=== PATIENT | female | born 1945 | race Caucasian/White ===

== ENCOUNTER 2017-01-12 16:25 | Emergency (ER) | payer MEDICARE ==
--- NOTE | 2017-01-12 17:09 | ED Physician Documentation ---
Upper Respiratory Symptoms - HISTORIAN Historian: patient - HPI Stated Complaint: cough, congestion Chief Complaint: Upper Respiratory Symptoms Additional Information: thinks she got sick sitting in car with AC on full blast, started coughing, now sides hurt from coughing so much. runny nose, taking benadryl and cold medicine. Onset: days ago Duration: constant Context: denies: recent foreign travel Severity: mild Associated Symptoms: runny nose, sore throat. denies: fever, chills, bloody cough, productive cough, shortness of breath, hurts to breathe Worsened by Deep Breath: No Further Comments: no - ROS CONST/EYES: denies: weakness CVS/RESP: other LYMPH: denies: leg swelling, rash GI/: none NEURO/PSYCH: denies: fainting, dizziness MS/SKIN: denies: joint pain, muscle aches - PAST HX Lung Disease: none PE Risk Factors: hypertension Allergies/Adverse Reactions: Allergies Allergy/AdvReac Type Severity Reaction Status Date / Time No Known Allergies Allergy Verified 01/12/17 16:42 Home Medications: Ambulatory Orders Medication Instructions Recorded Amantadine HCl [Amantadine] 100 mg PO QDAY 05/28/12 Armodafinil [Nuvigil] 50 mg PO QDAY 05/28/12 Solifenacin Succinate [Vesicare] 10 mg PO QDAY 05/28/12 Escitalopram Oxalate [Lexapro] 20 mg PO QDAY 06/19/12 Simvastatin [Simvastatin] 40 mg PO HS 06/19/12 - SOCIAL HX Smoking History: cigarettes, greater than 1 pack/day Alcohol Use: none Drug Use: none - FAMILY HX Family History: none - VITAL SIGNS Vital Signs: Vital Signs Temp Pulse Resp BP Pulse Ox 98.3 F 85 16 136/59 97 01/12/17 16:25 01/12/17 16:25 01/12/17 16:25 01/12/17 16:25 01/12/17 16:25 - REVIEWED ASSESSMENTS Nursing Assessment Reviewed: Yes Vitals Reviewed: Yes Upper Respiratory Symptoms - EXAM General Appearance: no acute distress, alert EENT: eyes nml inspection, nml ENT inspection, lids & conjunct. nml, pharynx nml , airway nml Neck: normal inspection, thyroid normal, supple. No: lymphadenopathy, carotid bruit Respiratory: no resp. distress, breath sounds nml, no pain on inspiration, speaks full sentences Abdomen: non-tender CVS: reg rate & rhythm, heart sounds normal Skin: color nml, no rash, warm,dry Extremities: non-tender, normal range of motion, no evidence of injury Neuro/Psych: oriented x3 Discharge Clincal Impression: Costochondritis, acute Allergic rhinitis Qualifiers: Chronicity: acute Allergic rhinitis trigger: other Allergic rhinitis seasonality: unspecified seasonality Qualified Code(s): J30.89 - Other allergic rhinitis Referrals: Christopher Mcginnis MD [Primary Care Provider] - 2 Days Condition: Good Disposition: 01 HOME, SELF-CARE Decision to Admit: NO Date of Decison to Admit: 01/12/17 Decision Time: 17:13
[2017-01-12 17:36] VITALS: BP 136/64
== END 2017-01-12 17:20 | disposition home or self-care (01) ==
LOC: ED 16:25
DX: M94.0 Chondrocostal junction syndrome [Tietze] (principal); J30.89 Other allergic rhinitis
CPT/HCPCS: 99283

== ENCOUNTER 2017-11-02 16:20 | Emergency (ER) | payer MEDICARE ==
[2017-11-02] MEDS ORDERED: Lidocaine 2%Visc 15ml 20 MG/ML UDC ONE (16:38)
[2017-11-02] MEDS ORDERED: MAGNESIUM, ALUMINUM HYDROXIDE 30 ML UDC PO ONE (16:38)
--- NOTE | 2017-11-02 19:36 | ED Physician Documentation ---
Fall - HISTORIAN Historian: patient - HPI Chief Complaint: Fall - ROS CONST: denies: no problems - PAST HX Past History: denies: none Allergies/Adverse Reactions: Allergies Allergy/AdvReac Type Severity Reaction Status Date / Time No Known Allergies Allergy Verified 01/12/17 16:42 Home Medications: Ambulatory Orders Medication Instructions Recorded Amantadine HCl [Amantadine] 100 mg PO QDAY 05/28/12 Armodafinil [Nuvigil] 50 mg PO QDAY 05/28/12 Solifenacin Succinate [Vesicare] 10 mg PO QDAY 05/28/12 Escitalopram Oxalate [Lexapro] 20 mg PO QDAY 06/19/12 Simvastatin [Simvastatin] 40 mg PO HS 06/19/12 - SOCIAL HX Smoking History: non-smoker - FAMILY HX Family History: denies: none - VITAL SIGNS Vital Signs: Vital Signs Temp Pulse Resp BP Pulse Ox 136/64 01/12/17 17:20 Progress - Progress Progress: Extensive wait time in ER due to multiple critical trauma patients. 1936 Patient not in triage room. Patient was not examined my provider. Only had orders placed ED Results Lab/Radiology - Radiology Radiology Impressions: CT facial bones HISTORY Swelling, fall, injury. TECHNIQUE Images through the facial bones were obtained. Multiplanar reconstructions were not performed. FINDINGS There is no fracture or abnormal bone production or destruction. The mandible, zygomatic arches and pterygoid plates are normal. The paranasal sinuses are well developed and aerated. There is a small mucous retention cyst in the left maxillary sinus. Orbits are normal. IMPRESSION No osseous abnormality. Electronically signed on Nov 02, 2017 7:34:03 PM CDT by: Sadi Mahoney - Orders Orders: ED Orders Category Date Time Status CT MAXILLOFACIAL W/O DYE Stat Exams 11/02/17 Taken Lidocaine 2%Visc 15ml [Xylocaine] Med 11/02/17 16:38 Discontinued 300 mg .ROUTE .STK-MED ONE Magnesium, Aluminum Hydroxide [Maalox] Med 11/02/17 16:38 Discontinued 30 ml PO .STK-MED ONE Fall Physical Exam - Physical Exam General Appearance: No: no acute distress Neuro: No: oriented x3 Discharge Clincal Impression: Patient left without being seen Referrals: Primary Doctor,No [Primary Care Provider] - 2 Days Condition: Stable Disposition: AGAINST MEDICAL ADVICE Decision to Admit: NO Decision Time: 19:40
[2017-11-02 19:41] VITALS: BP 134/72
--- NOTE | 2017-11-02 19:50 | Diagnostic Imaging Report ---
[facility] [address] [facility] [address] [place] [address]. 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 TECHNIQUE Images through the facial bones were obtained. Multiplanar reconstructions were not performed. FINDINGS There is no fracture or abnormal bone production or destruction. The mandible, zygomatic arches and pterygoid plates are normal. The paranasal sinuses are well developed and aerated. There is a small mucous retention cyst in the left maxillary sinus. Orbits are normal. IMPRESSION No osseous abnormality. Electronically signed on Nov 02, 2017 7:34:03 PM CDT by: Sadi CRUZ
== END 2017-11-02 19:40 | disposition left against medical advice (07) ==
LOC: ED 16:20
DX: Z53.21 Procedure and treatment not carried out due to patient leaving prior to being seen by health care provider (principal)
CPT/HCPCS: 70486; 99281

== ENCOUNTER 2017-12-21 10:37 | Emergency (ER) | payer MEDICARE ==
--- NOTE | 2017-12-21 10:56 | ED Physician Documentation ---
General Adult - HISTORIAN Historian: patient - HPI Stated Complaint: Chest tightness Chief Complaint: General Adult Additional Information: Cough since yesterday. Hurts to take a deep breath. No fevers or unusual sweats. No treatment attempted. Non smoker but works at [employer] with lots of smoke exposure. No other modifying factors or associated signs. - ROS CONST: no problems - PAST HX Past History: hypertension, other (depression, MS) Surgeries/Procedures: , other (bladder sling, orthopedic, cataract, bladder inter stem) Allergies/Adverse Reactions: Allergies Allergy/AdvReac Type Severity Reaction Status Date / Time No Known Allergies Allergy Verified 12/21/17 10:53 Home Medications: Ambulatory Orders Medication Instructions Recorded Amantadine HCl [Amantadine] 100 mg PO QDAY 05/28/12 Escitalopram Oxalate [Lexapro] 20 mg PO QDAY 06/19/12 Simvastatin 40 mg PO HS 06/19/12 Aspirin 81 mg PO DAILY u2 11/22/17 Cholecalciferol (Vitamin D3) 2,000 unit PO DAILY u2 11/22/17 [Vitamin D3] Lisinopril 5Mg [Prinivil] 1 tab PO DAILY 90 Days #90 11/22/17 Modafinil 100 mg PO BID u2 11/22/17 Multivitamin [Multi-Vitamin Daily] 1 each PO DAILY u2 11/22/17 Vitamin B Complex [B Complete] 1 each PO DAILY u2 11/22/17 Vitamin E Mixed [Vitamin E] 1,000 unit PO DAILY av 11/22/17 - SOCIAL HX Smoking History: non-smoker, secondhand Alcohol Use: none Drug Use: none - FAMILY HX Family History: No - VITAL SIGNS Vital Signs: Vital Signs Temp Pulse Resp BP Pulse Ox 98.2 F 73 15 173/79 99 12/21/17 10:40 12/21/17 10:40 12/21/17 10:40 12/21/17 10:40 12/21/17 10:40 - REVIEWED ASSESSMENTS Nursing Assessment Reviewed: Yes Vitals Reviewed: Yes Progress - Progress Progress: Report Submission Date: Dec 21, 2017 12:02:38 PM CDT Patient Study Name: DEON MELGAR Date: Dec 21, 2017 11:19:15 AM CDT Modality Type: DX Gender: F Description: CHEST : 49 Institution: [facility] Physician: HANNAH FIELDS - Examination: PA and lateral chest. History: Evaluate lung stallings. CXR, COUGH SINCE LAST NIGHT, WORSENING, FORMER SMOKER 25 YEARS AGO (Hx) Comparison exam: None provided. Findings: PA and lateral views of the chest demonstrates a prominent cardiac and mediastinal silhouette. Vascular calcification by the aortic arch. Bibasilar interstitial fullness. No blunting of the costophrenic margins. Osseous structures are appropriate for age. Impression: Bibasilar interstitial fullness - mild infiltrate versus scarring. No effusion. Mild cardiomegaly. Correlation with older exams recommended if become available. Electronically signed on Dec 21, 2017 12:02:38 PM CDT by: Harman Jay ED Results Lab/Radiology - Orders Orders: ED Orders Category Date Time Status Place IV Lock 1T Care 12/21/17 10:50 Ordered CHEST 2VIEW [RAD] Stat Exams 12/21/17 Ordered CBC/PLATELET/DIFF Routine Lab 12/21/17 Ordered CMP Routine Lab 12/21/17 Ordered General Adult Physical Exam - PHYSICAL EXAM GENERAL APPEARANCE: mild distress EENT: eye inspection normal, ENT inspection normal (dentures), pharynx normal NECK: normal inspection, supple RESPIRATORY: no resp distress, breath sounds normal (diminished?), rales CVS: reg rate & rhythm, heart sounds normal, no murmur ABDOMEN: soft, normal bowel sounds BACK: normal inspection, no CVA tenderness SKIN: warm/dry, normal color EXTREMITIES: normal range of motion (gait and stance), no evidence of injury NEURO: CN's nml as tested, motor nml, sensation nml Discharge Clincal Impression: Bronchitis Referrals: Primary Doctor,No [Primary Care Provider] - 2 Days Additional Instructions: Avoid smoke as much as possible. Drink plenty of water. Take all the antibiotics as prescribed until they are completely gone. Condition: Fair Disposition: 01 HOME, SELF-CARE Decision to Admit: NO Decision Time: 12:07
[2017-12-21] MEDS: IPRATROPIUM/ALBUTEROL SULFATE 3 ML AMPUL.NEB NEB ONE (11:00)
[2017-12-21 11:32] LABS: BASOPHILS % 0.7 (0.0-1.5); EOSINOPHILS % 2.9 % (0.0-6.8); MEAN CORPUSCULAR HEMOGLOBIN 28.8 pg (28.0-34.0); MEAN CORPUSCULAR VOLUME 90.5 fl (80.0-100.0); MONOCYTES % 6.8 % (0.0-11.0); NEUTROPHILS # 3.8 # k/uL (1.4-7.7)
[2017-12-21 11:52] LABS: eGFR (African) > 60; eGFR (Non-African) > 60
[2017-12-21 12:28] VITALS: BP 159/66
--- NOTE | 2017-12-21 18:51 | Diagnostic Imaging Report ---
HANNAH FIELDS [facility] [address] [facility] [address] [place] [address]. [id number] Report Submission Date: Dec 21, 2017 12:02:38 PM CDT Patient Study Name: DEON MELGAR Date: Dec 21, 2017 11:19:15 AM CDT Modality Type: DX Gender: F Description: CHEST : 49 Institution: [facility] Physician: HANNAH FIELDS Examination: PA and lateral chest. History: Evaluate lung stallings. CXR, COUGH SINCE LAST NIGHT, WORSENING, FORMER SMOKER 25 YEARS AGO (Hx) Comparison exam: None provided. Findings: PA and lateral views of the chest demonstrates a prominent cardiac and mediastinal silhouette. Vascular calcification by the aortic arch. Bibasilar interstitial fullness. No blunting of the costophrenic margins. Osseous structures are appropriate for age. Impression: Bibasilar interstitial fullness - mild infiltrate versus scarring. No effusion. Mild cardiomegaly. Correlation with older exams recommended if become available. Electronically signed on Dec 21, 2017 12:02:38 PM CDT by: Harman CRUZ
== END 2017-12-21 12:20 | disposition home or self-care (01) ==
LOC: ED 10:37
DX: J40 Bronchitis, not specified as acute or chronic (principal)
CPT/HCPCS: 71046; 80053; 85025; 94640; 99283; S1016

== ENCOUNTER 2018-10-31 03:20 | Emergency (ER) | payer MEDICARE, OTHER ==
[2018-10-31 03:52] VITALS: BP 153/55
--- NOTE | 2018-10-31 04:20 | ED Physician Documentation ---
General Adult - HISTORIAN Historian: patient - HPI Stated Complaint: weak, shaky, diaphoretic Chief Complaint: General Adult Additional Information: Patient is a 73-year-old female who presents to the ER with c/o fatigue. She states that she got to work last night around 11p and felt ok- as time progressed she started feeling lightheaded. She stated that she had been outside and that she may be a little dehydrated. She states that when she goes outside she automatically starts sweating. Denies f/c/n/v/d. Onset: hours Timing: better Severity: mild Modifying Factors: Not drinking fluids - ROS CONST: sweating EYES/ENT: none CVS/RESP: none GI/: none MS/SKIN/LYMPH: none NEURO/PSYCH: denies: headache - PAST HX Past History: hypertension, other (HLD, YESSICA, Multiple Sclerosis, Anxiety) Other History: none Surgeries/Procedures: , other (cataracts, bladder sling) Immunizations: UTD Allergies/Adverse Reactions: Allergies Allergy/AdvReac Type Severity Reaction Status Date / Time No Known Allergies Allergy Verified 10/31/18 03:52 Home Medications: Ambulatory Orders Medication Instructions Recorded Amantadine HCl [Amantadine] 100 mg PO QDAY 05/28/12 Escitalopram Oxalate [Lexapro] 20 mg PO QDAY 06/19/12 Simvastatin 40 mg PO HS 06/19/12 Aspirin 81 mg PO DAILY u2 11/22/17 Cholecalciferol (Vitamin D3) 2,000 unit PO DAILY u2 11/22/17 [Vitamin D3] Lisinopril 5Mg [Prinivil] 1 tab PO DAILY 90 Days #90 11/22/17 Modafinil 100 mg PO BID u2 11/22/17 Multivitamin [Multi-Vitamin Daily] 1 each PO DAILY u2 11/22/17 Vitamin B Complex [B Complete] 1 each PO DAILY u2 11/22/17 Vitamin E Mixed [Vitamin E] 1,000 unit PO DAILY av 11/22/17 - SOCIAL HX Smoking History: less than 1 pack/day Alcohol Use: none Drug Use: none - FAMILY HX Family History: No - VITAL SIGNS Vital Signs: Vital Signs Temp Pulse Resp BP Pulse Ox 97.3 F L 62 16 153/55 97 10/31/18 03:45 10/31/18 03:45 10/31/18 03:45 10/31/18 03:45 10/31/18 03:45 - REVIEWED ASSESSMENTS Nursing Assessment Reviewed: Yes Vitals Reviewed: Yes Progress - Progress Progress: 04:30 Patient feeling much better- ready to go home ED Results Lab/Radiology - Orders Orders: ED Orders Category Date Time Status CBC AUTO DIFF Routine Lab 10/31/18 04:03 Received CMP Routine Lab 10/31/18 04:03 Received General Adult Physical Exam - PHYSICAL EXAM GENERAL APPEARANCE: no distress EENT: eye inspection normal, ENT inspection normal, pale conjunctivae, dry mucous membranes NECK: normal inspection, supple RESPIRATORY: chest non-tender, breath sounds normal CVS: reg rate & rhythm, heart sounds normal, equal pulses ABDOMEN: soft, normal bowel sounds BACK: normal inspection SKIN: warm/dry EXTREMITIES: non-tender NEURO: oriented X3, CN's nml as tested, motor nml, sensation nml, mood/affect nml, cognition normal Discharge Clincal Impression: Dehydration Referrals: Primary Doctor,No [Primary Care Provider] - 2 Days Additional Instructions: Increase water intake Rest No sun exposure for 1 week Follow up with PCP next week for re-evaluation Condition: Good Disposition: 01 HOME, SELF-CARE Decision to Admit: NO Decision Time: 04:40
[2018-10-31 06:10] LABS: BASOPHILS % 0.5 % (0.0-1.5)
[2018-10-31 06:11] LABS: eGFR (Non-African) > 60
== END 2018-10-31 04:38 | disposition home or self-care (01) ==
LOC: ED 03:20
DX: Z00.01 Encounter for general adult medical examination with abnormal findings (principal); E86.0 Dehydration
CPT/HCPCS: 80053; 85025; 99282; 99283

== ENCOUNTER 2018-11-21 13:16 | Emergency (ER) | payer OTHER ==
[2018-11-21 13:33] VITALS: BP 97/66
--- NOTE | 2018-11-21 13:50 | ED Physician Documentation ---
General Adult - HPI Stated Complaint: F.O. in L Foot Chief Complaint: General Adult Additional Information: Patient presents to ED with splinter plantar surface of left foot. Onset: hours (24) Timing: still present Severity: mild - ROS CONST: no problems EYES/ENT: none CVS/RESP: none GI/: none MS/SKIN/LYMPH: none NEURO/PSYCH: denies: headache - PAST HX Past History: hypertension Other History: none Allergies/Adverse Reactions: Allergies Allergy/AdvReac Type Severity Reaction Status Date / Time No Known Allergies Allergy Verified 11/21/18 13:33 Home Medications: Ambulatory Orders Medication Instructions Recorded Amantadine HCl [Amantadine] 100 mg PO QDAY 05/28/12 Escitalopram Oxalate [Lexapro] 20 mg PO QDAY 06/19/12 Simvastatin 40 mg PO HS 06/19/12 Aspirin 81 mg PO DAILY u2 11/22/17 Cholecalciferol (Vitamin D3) 2,000 unit PO DAILY u2 11/22/17 [Vitamin D3] Lisinopril 5Mg [Prinivil] 1 tab PO DAILY 90 Days #90 11/22/17 Modafinil 100 mg PO BID u2 11/22/17 Multivitamin [Multi-Vitamin Daily] 1 each PO DAILY u2 11/22/17 Vitamin B Complex [B Complete] 1 each PO DAILY u2 11/22/17 Vitamin E Mixed [Vitamin E] 1,000 unit PO DAILY av 11/22/17 - SOCIAL HX Smoking History: non-smoker Alcohol Use: none Drug Use: none - FAMILY HX Family History: No - VITAL SIGNS Vital Signs: Vital Signs Temp Pulse Resp BP Pulse Ox 97.3 F L 71 16 97/66 97 11/21/18 13:20 11/21/18 13:20 11/21/18 13:20 11/21/18 13:20 11/21/18 13:20 - REVIEWED ASSESSMENTS Nursing Assessment Reviewed: Yes Vitals Reviewed: Yes Procedures Wound Location: lower extremity (left plantar surface foot) Wound Length: Splinter removal with 18 guage needle Betadine Prep?: Yes General Adult Physical Exam - PHYSICAL EXAM GENERAL APPEARANCE: no distress EENT: ЕЛЕНА NECK: supple RESPIRATORY: no resp distress, chest non-tender CVS: reg rate & rhythm, heart sounds normal ABDOMEN: soft, normal bowel sounds BACK: normal inspection SKIN: warm/dry, normal color EXTREMITIES: non-tender, normal range of motion, no evidence of injury, no edema, other (0.5 cm splinter to plantar surface left foot (lateral)) NEURO: oriented X3, mood/affect nml Discharge Clincal Impression: Splinter in skin Referrals: Primary Doctor,No [Primary Care Provider] - 2 Days Additional Instructions: 1. Tylenol as needed for pain 2. Wash your feet twice daily 3. Follow up with PCP within 1 week 4. Return to ER for new or worsening symptoms. Condition: Stable Decision to Admit: NO Date of Decison to Admit: 11/21/18 Decision Time: 13:53
== END 2018-11-21 13:58 | disposition home or self-care (01) ==
LOC: ED 13:16
DX: S90.852A Superficial foreign body, left foot, initial encounter (principal)
CPT/HCPCS: 99282